=== PATIENT | male | born 1950 | race Two or more races ===

== ENCOUNTER 2022-05-16 06:30 | Day surgery (SDC) | payer OTHER ==
[~2022-05-16 06:30] MED LIST: ATORVASTATIN CA20 MG PO; FELODIPINE ER5 MG PO; FENO PO; GLIPIZIDE XL10 MG PO; GLUMETZA1000 MG PO; LOSARTAN-HCTZ1 EACH PO
[2022-05-16] MEDS ORDERED: CEPHALEXIN500 MG PO (12:47)
[2022-05-16] MEDS ORDERED: CILOXAN5 ML OTIC (12:47)
== END 2022-05-16 14:20 | disposition home or self-care (01) ==
LOC: CIR.AMB 06:30
PROVIDERS: ATTEND Otolaryngology Otology & Neurotology
DX: H74.21 Discontinuity and dislocation of right ear ossicles (principal); H74.01 Tympanosclerosis, right ear; H90.11 Conductive hearing loss, unilateral, right ear, with unrestricted hearing on the contralateral side; I10 Essential (primary) hypertension; Z87.891 Personal history of nicotine dependence